=== PATIENT | female | born 1940 | race Two or more races ===

== ENCOUNTER 2023-06-01 03:41 | Emergency (ER) | payer OTHER ==
[~2023-06-01] VITALS: Ht 157.5 cm; Wt 51.3 kg
[2023-06-01] MEDS ORDERED: methylPREDNISolone SOD SUCC 125 MG/2ML VIAL ONE (03:51)
[2023-06-01] MEDS ORDERED: ASPIRIN 81 MG TAB.CHEW PO ONE (04:00)
[2023-06-01] MEDS ORDERED: IPRATROPIUM NEB FS 0.5 MG/2.5 ML AMPUL.NEB NEB ONE (04:00)
[2023-06-01] MEDS ORDERED: ALBUTEROL FS 2.5 MG/3 ML VIAL.NEB NEB ONE (04:00)
[2023-06-01] MEDS ORDERED: methylPREDNISolone SOD SUCC 125 MG/2ML VIAL IV ONE (04:00)
[2023-06-01] MEDS ORDERED: ALBUTEROL FS 2.5 MG/3 ML VIAL.NEB ONE (04:03)
[2023-06-01] MEDS ORDERED: IPRATROPIUM NEB FS 0.5 MG/2.5 ML AMPUL.NEB ONE (04:03)
[2023-06-01] MEDS ORDERED: ASPIRIN 81 MG TAB.CHEW ONE (04:05)
[2023-06-01 04:11] VITALS: O2SAT 97
[2023-06-01 04:58] LABS: BASOPHILS # (AUTO) 0.1 K/uL (0.0-0.2); BASOPHILS % (AUTO) 0.9 % (0.0-2.0); EOSINOPHILS # (AUTO) 1.4 K/uL (0.0-0.7); EOSINOPHILS % (AUTO) 12.8 % (0.0-6.0); HEMATOCRIT 41 % (33-45); HEMOGLOBIN 13.1 g/dL (11.5-14.8); LYMPHOCYTES # (AUTO) 1.6 K/uL (0.8-4.8); LYMPHOCYTES % (AUTO) 14.4 % (20.0-44.0); MEAN CORPUSCULAR HEMOGLOBIN 28 PG (26.0-33.0); MEAN CORPUSCULAR HGB CONC 32 g/dl (31.0-36.0); MEAN CORPUSCULAR VOLUME 86 fL (82-100); MONOCYTES # (AUTO) 0.9 K/uL (0.1-1.30); MONOCYTES % (AUTO) 8.1 % (2.0-12.0); NEUTROPHILS # (AUTO) 6.9 K/uL (1.8-8.9); NEUTROPHILS % (AUTO) 63.8 % (43.0-81.0); PLATELET COUNT (AUTO) 197 K/uL (150-450); RED BLOOD CELL COUNT(AUTO) 4.75 MIL/uL (4.0-5.2); RED CELL DISTRIBUTION WIDTH 18.3 % (11.5-15.0); WHITE BLOOD COUNT (AUTO) 10.8 K/uL (4.3-11.0)
[2023-06-01 05:11] VITALS: O2SAT 98; O2SAT 99
[2023-06-01 05:16] LABS: CALCIUM, SERUM 9.4 mg/dL (8.5-10.1); CARBON DIOXIDE 28 mmol/L (21-32); CHLORIDE 95 mmol/L (98-107); CREATININE 1.2 mg/dL (0.6-1.3); GLUCOSE 119 mg/dL (74-106); POTASSIUM 4.1 mmol/L (3.5-5.1); SODIUM SERUM 134 mmol/L (136-145); UREA NITROGEN, BLOOD 22 mg/dL (7-18)
[2023-06-01 09:12] VITALS: BP 145/77; TEMP 98.1; O2SAT 99
== END 2023-06-01 09:12 | disposition short-term general hospital (02) ==
LOC: ER 03:43
DX: R07.9 Chest pain, unspecified (principal); J44.9 Chronic obstructive pulmonary disease, unspecified; I10 Essential (primary) hypertension; I48.91 Unspecified atrial fibrillation; Z88.0 Allergy status to penicillin; Z88.8 Allergy status to other drugs, medicaments and biological substances
CPT/HCPCS: 99285; 96374; 71045; 93005; 85025; 80048; 36415; 84484 ×2; 94644; J2930

== ENCOUNTER 2023-09-04 03:29 | Emergency (ER) | payer OTHER ==
[~2023-09-04] VITALS: Ht 157.5 cm; Wt 51.3 kg
[2023-09-04] MEDS ORDERED: FUROSEMIDE 40 MG/4 ML VIAL ONE (03:58)
[2023-09-04] MEDS ORDERED: FUROSEMIDE 40 MG/4 ML VIAL IV ONE (04:00)
[2023-09-04] MEDS ORDERED: NITROGLYCERIN 0.4 MG/TAB BOTTLE SL ONE (04:00)
[2023-09-04 04:24] VITALS: TEMP 98
[2023-09-04 04:29] LABS: BASOPHILS # (AUTO) 0.1 K/uL (0.0-0.2); BASOPHILS % (AUTO) 0.8 % (0.0-2.0); EOSINOPHILS # (AUTO) 0.2 K/uL (0.0-0.7); EOSINOPHILS % (AUTO) 2.5 % (0.0-6.0); HEMATOCRIT 42 % (33-45); HEMOGLOBIN 13.7 g/dL (11.5-14.8); LYMPHOCYTES # (AUTO) 1.1 K/uL (0.8-4.8); LYMPHOCYTES % (AUTO) 11.8 % (20.0-44.0); MEAN CORPUSCULAR HEMOGLOBIN 29 PG (26.0-33.0); MEAN CORPUSCULAR HGB CONC 33 g/dl (31.0-36.0); MEAN CORPUSCULAR VOLUME 87 fL (82-100); MONOCYTES # (AUTO) 0.7 K/uL (0.1-1.30); MONOCYTES % (AUTO) 6.9 % (2.0-12.0); NEUTROPHILS # (AUTO) 7.5 K/uL (1.8-8.9); PLATELET COUNT (AUTO) 197 K/uL (150-450); RED BLOOD CELL COUNT(AUTO) 4.78 MIL/uL (4.0-5.2); RED CELL DISTRIBUTION WIDTH 17.5 % (11.5-15.0); WHITE BLOOD COUNT (AUTO) 9.7 K/uL (4.3-11.0)
[2023-09-04 04:32] LABS: CARBON DIOXIDE 28 mmol/L (21-32); CHLORIDE 93 mmol/L (98-107); CREATININE 1.2 mg/dL (0.6-1.3); GLUCOSE 107 mg/dL (74-106); POTASSIUM 4.6 mmol/L (3.5-5.1); SODIUM SERUM 126 mmol/L (136-145); UREA NITROGEN, BLOOD 27 mg/dL (7-18)
[2023-09-04 04:37] LABS: INR 1.9 (0.91-1.10); PARTIAL THROMBOPLASTIN TIME 34.7 SEC (24.3-34.3); PROTHROMBIN TIME 19.3 SECS (9.2-11.1)
[2023-09-04 04:45] LABS: ALANINE AMINOTRANSFERASE 40 U/L (12-78); ALBUMIN 3.8 g/dL (3.4-5.0); ALKALINE PHOSPHATASE 116 U/L (46-116); ASPARTATE AMINOTRANSFERASE 46 U/L (15-37); BILIRUBIN,DIRECT 0.7 mg/dL (0.0-0.2); BILIRUBIN,TOTAL 1.5 mg/dL (0.2-1.0); NT-PRO BNP 6819 pg/mL (0-125); TOTAL PROTEIN, SERUM 7.9 g/dL (6.4-8.2)
[2023-09-04] MEDS ORDERED: ENOXAPARIN SODIUM 40 MG/0.4 ML DISP.SYRIN SQ ONE (05:00)
[2023-09-04] MEDS ORDERED: ENOXAPARIN SODIUM 60 MG/0.6 ML DISP.SYRIN SQ ONE (05:04)
[2023-09-04 07:53] VITALS: BP 144/92; O2SAT 98
== END 2023-09-04 09:10 | disposition short-term general hospital (02) ==
LOC: ER 03:54
DX: I21.4 Non-ST elevation (NSTEMI) myocardial infarction (principal); I11.0 Hypertensive heart disease with heart failure; I50.9 Heart failure, unspecified; I48.91 Unspecified atrial fibrillation; Z20.822 Contact with and (suspected) exposure to COVID-19; J44.9 Chronic obstructive pulmonary disease, unspecified; R07.89 Other chest pain; Z88.1 Allergy status to other antibiotic agents
CPT/HCPCS: 99291; 96374; 71045; 87426; 99292; 93005; 85025; 80048; 80076; 36415; 84484; 85730; 83880; 96372; J1940; J1650; C9803

== ENCOUNTER 2024-03-24 19:49 | Emergency (ER) | payer OTHER, MEDICAID ==
[~2024-03-24] VITALS: Ht 154.9 cm; Wt 48.1 kg
[2024-03-24 20:11] VITALS: TEMP 98.2
[2024-03-24 20:33] LABS: BASOPHILS % (AUTO) 0.4 % (0.0-2.0); EOSINOPHILS # (AUTO) 0.5 K/uL (0.0-0.7); EOSINOPHILS % (AUTO) 5.3 % (0.0-6.0); HEMATOCRIT 37 % (33-45); HEMOGLOBIN 12.1 g/dL (11.5-14.8); LYMPHOCYTES # (AUTO) 0.9 K/uL (0.8-4.8); LYMPHOCYTES % (AUTO) 9.5 % (20.0-44.0); MEAN CORPUSCULAR HEMOGLOBIN 30 PG (26.0-33.0); MEAN CORPUSCULAR HGB CONC 33 g/dl (31.0-36.0); MEAN CORPUSCULAR VOLUME 90 fL (82-100); MONOCYTES % (AUTO) 9.9 % (2.0-12.0); NEUTROPHILS # (AUTO) 7.5 K/uL (1.8-8.9); NEUTROPHILS % (AUTO) 74.9 % (43.0-81.0); PLATELET COUNT (AUTO) 212 K/uL (150-450); RED BLOOD CELL COUNT(AUTO) 4.09 MIL/uL (4.0-5.2)
[2024-03-24 20:40] LABS: CALCIUM, SERUM 9.3 mg/dL (8.5-10.1); CARBON DIOXIDE 33 mmol/L (21-32); CHLORIDE 96 mmol/L (98-107); GLUCOSE 118 mg/dL (74-106); POTASSIUM 4.7 mmol/L (3.5-5.1); SODIUM SERUM 136 mmol/L (136-145); UREA NITROGEN, BLOOD 19 mg/dL (7-18)
[2024-03-24 20:54] LABS: NT-PRO BNP 8592 pg/mL (0-125)
[2024-03-24] MEDS ORDERED: FUROSEMIDE 40 MG/4 ML VIAL ONE (21:05)
[2024-03-24] MEDS ORDERED: NITROGLYCERIN PACKET 1 GM PACKET ONE (21:05)
[2024-03-24] MEDS: FUROSEMIDE 40 MG/4 ML VIAL IV ONE (21:15)
[2024-03-24] MEDS: NITROGLYCERIN PACKET 1 GM PACKET TD ONE (21:19)
[2024-03-24 21:41] VITALS: BP 157/97
[2024-03-24 21:55] LABS: INR 3.44 (0.91-1.10); PARTIAL THROMBOPLASTIN TIME 41.6 SEC (24.3-34.3); PROTHROMBIN TIME 33.6 SECS (9.2-11.1)
[2024-03-24 23:01] VITALS: O2SAT 98
[2024-03-24] MEDS: IPRATROPIUM NEB FS 0.5 MG/2.5 ML AMPUL.NEB NEB ONE (23:01)
[2024-03-24] MEDS: ALBUTEROL FS 2.5 MG/3 ML VIAL.NEB NEB ONE (23:01)
[2024-03-24] MEDS ORDERED: IPRATROPIUM NEB FS 0.5 MG/2.5 ML AMPUL.NEB ONE (23:03)
[2024-03-24] MEDS ORDERED: ALBUTEROL FS 2.5 MG/3 ML VIAL.NEB ONE (23:03)
[2024-03-24 23:18] VITALS: O2SAT 99
== END 2024-03-24 23:35 | disposition short-term general hospital (02) ==
LOC: ER 20:01
DX: I50.9 Heart failure, unspecified (principal); I21.4 Non-ST elevation (NSTEMI) myocardial infarction; I48.91 Unspecified atrial fibrillation; J44.89 Other specified chronic obstructive pulmonary disease; Z88.8 Allergy status to other drugs, medicaments and biological substances
CPT/HCPCS: 99285; 96374; 71045; 93005 ×2; 85025; 80048; 80162; 36415; 84484 ×2; 85730; 83880; 94640; J1940

== ENCOUNTER 2024-03-29 13:23 | Emergency (ER) | payer OTHER, MEDICAID ==
[~2024-03-29] VITALS: Ht 152.4 cm; Wt 44.9 kg
[2024-03-29 14:04] LABS: BASOPHILS # (AUTO) 0.1 K/uL (0.0-0.2); EOSINOPHILS # (AUTO) 0.4 K/uL (0.0-0.7); LYMPHOCYTES # (AUTO) 0.6 K/uL (0.8-4.8); LYMPHOCYTES % (AUTO) 8.4 % (20.0-44.0); MONOCYTES # (AUTO) 0.9 K/uL (0.1-1.30); NEUTROPHILS # (AUTO) 5.4 K/uL (1.8-8.9); WHITE BLOOD COUNT (AUTO) 7.4 K/uL (4.3-11.0)
[2024-03-29 14:08] LABS: EOSINOPHILS % (AUTO) 5.5 % (0.0-6.0); HEMATOCRIT 38 % (33-45); HEMOGLOBIN 12.3 g/dL (11.5-14.8); MEAN CORPUSCULAR HEMOGLOBIN 29 PG (26.0-33.0); MEAN CORPUSCULAR HGB CONC 32 g/dl (31.0-36.0); MEAN CORPUSCULAR VOLUME 90 fL (82-100); MONOCYTES % (AUTO) 11.8 % (2.0-12.0); NEUTROPHILS % (AUTO) 73.3 % (43.0-81.0); PLATELET COUNT (AUTO) 217 K/uL (150-450); RED BLOOD CELL COUNT(AUTO) 4.25 MIL/uL (4.0-5.2); RED CELL DISTRIBUTION WIDTH 17.6 % (11.5-15.0)
[2024-03-29 14:13] LABS: CALCIUM, SERUM 8.7 mg/dL (8.5-10.1); CARBON DIOXIDE 32 mmol/L (21-32); CHLORIDE 97 mmol/L (98-107); CREATININE 0.9 mg/dL (0.6-1.3); GLUCOSE 118 mg/dL (74-106); POTASSIUM 4.4 mmol/L (3.5-5.1); SODIUM SERUM 131 mmol/L (136-145); UREA NITROGEN, BLOOD 17 mg/dL (7-18)
[2024-03-29 14:25] LABS: NT-PRO BNP 7850 pg/mL (0-125)
[2024-03-29 19:03] VITALS: BP 173/79; TEMP 97.9; O2SAT 100
== END 2024-03-29 19:04 ==
LOC: ER 13:37
DX: I11.0 Hypertensive heart disease with heart failure (principal); I50.9 Heart failure, unspecified; J44.9 Chronic obstructive pulmonary disease, unspecified; I48.91 Unspecified atrial fibrillation; Z88.8 Allergy status to other drugs, medicaments and biological substances
CPT/HCPCS: 36415; 71045-TC; 80048-TC; 83880; 84484-TC; 85025-TC

== ENCOUNTER 2024-04-03 23:52 | Emergency (ER) | payer OTHER, MEDICAID ==
[~2024-04-03] VITALS: Ht 152.4 cm; Wt 49.9 kg
[2024-04-04] MEDS ORDERED: FUROSEMIDE 40 MG/4 ML VIAL ONE (00:17)
[2024-04-04] MEDS ORDERED: NITROGLYCERIN 0.4 MG/TAB BOTTLE ONE (00:18)
[2024-04-04 00:33] LABS: BASOPHILS % (AUTO) 0.4 % (0.0-2.0); EOSINOPHILS # (AUTO) 0.6 K/uL (0.0-0.7); EOSINOPHILS % (AUTO) 5.5 % (0.0-6.0); HEMATOCRIT 36 % (33-45); HEMOGLOBIN 11.7 g/dL (11.5-14.8); LYMPHOCYTES # (AUTO) 0.9 K/uL (0.8-4.8); LYMPHOCYTES % (AUTO) 8.9 % (20.0-44.0); MEAN CORPUSCULAR HEMOGLOBIN 30 PG (26.0-33.0); MEAN CORPUSCULAR HGB CONC 33 g/dl (31.0-36.0); MEAN CORPUSCULAR VOLUME 90 fL (82-100); MONOCYTES # (AUTO) 1.4 K/uL (0.1-1.30); MONOCYTES % (AUTO) 13.7 % (2.0-12.0); NEUTROPHILS # (AUTO) 7.2 K/uL (1.8-8.9); NEUTROPHILS % (AUTO) 71.5 % (43.0-81.0); PLATELET COUNT (AUTO) 258 K/uL (150-450); RED BLOOD CELL COUNT(AUTO) 3.96 MIL/uL (4.0-5.2); RED CELL DISTRIBUTION WIDTH 16.7 % (11.5-15.0); WHITE BLOOD COUNT (AUTO) 10.1 K/uL (4.3-11.0)
[2024-04-04] MEDS: FUROSEMIDE 40 MG/4 ML VIAL IV ONE (00:38)
[2024-04-04] MEDS: NITROGLYCERIN 0.4 MG/TAB BOTTLE SL ONE (00:38)
[2024-04-04 00:50] LABS: CALCIUM, SERUM 9.1 mg/dL (8.5-10.1); CARBON DIOXIDE 29 mmol/L (21-32); CHLORIDE 90 mmol/L (98-107); CREATININE 1.2 mg/dL (0.6-1.3); GLUCOSE 146 mg/dL (74-106); POTASSIUM 4.9 mmol/L (3.5-5.1); SODIUM SERUM 128 mmol/L (136-145); UREA NITROGEN, BLOOD 31 mg/dL (7-18)
[2024-04-04 01:03] LABS: ALANINE AMINOTRANSFERASE 21 U/L (12-78); ALBUMIN 2.7 g/dL (3.4-5.0); ALKALINE PHOSPHATASE 125 U/L (46-116); ASPARTATE AMINOTRANSFERASE 30 U/L (15-37); BILIRUBIN,DIRECT 1.1 mg/dL (0.0-0.2); BILIRUBIN,TOTAL 1.7 mg/dL (0.2-1.0); NT-PRO BNP 13187 pg/mL (0-125); TOTAL PROTEIN, SERUM 7.4 g/dL (6.4-8.2)
[2024-04-04 02:01] LABS: INR 3.86 (0.91-1.10); PARTIAL THROMBOPLASTIN TIME 49.8 SEC (24.3-34.3); PROTHROMBIN TIME 37.5 SECS (9.2-11.1)
[2024-04-04 03:06] VITALS: O2SAT 96
[2024-04-04] MEDS: IPRATROPIUM NEB FS 0.5 MG/2.5 ML AMPUL.NEB NEB ONE (03:07)
[2024-04-04] MEDS: ALBUTEROL FS 2.5 MG/3 ML VIAL.NEB NEB ONE (03:07)
[2024-04-04] MEDS ORDERED: IPRATROPIUM NEB FS 0.5 MG/2.5 ML AMPUL.NEB ONE (03:14)
[2024-04-04] MEDS ORDERED: ALBUTEROL FS 2.5 MG/3 ML VIAL.NEB ONE (03:14)
[2024-04-04 03:21] VITALS: O2SAT 99
[2024-04-04] MEDS ORDERED: LIDOCAINE VISCOUS 2% UD 15 ML UDC ONE (03:25)
[2024-04-04] MEDS ORDERED: MAG HYDROX/AL HYDROX/SIMETH 30 ML UDC ONE (03:25)
[2024-04-04] MEDS: LIDOCAINE VISCOUS 2% UD 15 ML UDC MM ONE (03:25)
[2024-04-04] MEDS: MAG HYDROX/AL HYDROX/SIMETH 30 ML UDC PO ONE (03:25)
[2024-04-04 03:54] VITALS: BP 141/78; TEMP 98.8; O2SAT 99
== END 2024-04-04 03:55 | disposition short-term general hospital (02) ==
LOC: ER 23:54
DX: I50.9 Heart failure, unspecified (principal); R06.02 Shortness of breath; E87.1 Hypo-osmolality and hyponatremia; I48.91 Unspecified atrial fibrillation; J44.9 Chronic obstructive pulmonary disease, unspecified; Z20.822 Contact with and (suspected) exposure to COVID-19; Z88.1 Allergy status to other antibiotic agents; Z88.5 Allergy status to narcotic agent; Z88.8 Allergy status to other drugs, medicaments and biological substances
CPT/HCPCS: 99291; 96374; 87426; 93005; 71045; 85025; 80048; 80076; 36415; 84484; 85730; 83880; 94640; J1940

== ENCOUNTER 2024-04-13 06:17 | Inpatient (IN) | payer OTHER, MEDICAID ==
[2024-04-13] VITALS (12 sets, daily range): BP systolic 115–125; BP diastolic 72–89; TEMP 97.3–98; O2SAT 95–99
[~2024-04-13] VITALS: Ht 154.9 cm; Wt 43.1 kg
[2024-04-13] MEDS: ALBUTEROL FS 2.5 MG/3 ML VIAL.NEB CONTNEB ONE (06:25)
[2024-04-13] MEDS: IPRATROPIUM NEB FS 0.5 MG/2.5 ML AMPUL.NEB NEB ONE (06:25)
[2024-04-13] MEDS ORDERED: Magnesium 1GM/D5W 100ML PREMIX 100 ML IV ONE (06:28)
[2024-04-13] MEDS ORDERED: methylPREDNISolone SOD SUCC 125 MG/2ML VIAL ONE (06:28)
[2024-04-13] MEDS ORDERED: ALBUTEROL FS 2.5 MG/3 ML VIAL.NEB ONE (06:28)
[2024-04-13] MEDS ORDERED: IPRATROPIUM NEB FS 0.5 MG/2.5 ML AMPUL.NEB ONE (06:29)
[2024-04-13] MEDS: Magnesium 1GM/D5W 100ML PREMIX 200 ML IV ONE (06:30)
[2024-04-13] MEDS: methylPREDNISolone SOD SUCC 125 MG/2ML VIAL IV ONE (06:30)
[2024-04-13 07:18] LABS: BASOPHILS # (AUTO) 0.1 K/uL (0.0-0.2); BASOPHILS % (AUTO) 0.6 % (0.0-2.0); EOSINOPHILS # (AUTO) 0.3 K/uL (0.0-0.7); EOSINOPHILS % (AUTO) 2.6 % (0.0-6.0); HEMATOCRIT 33 % (33-45); HEMOGLOBIN 10.6 g/dL (11.5-14.8); LYMPHOCYTES % (AUTO) 9.1 % (20.0-44.0); MEAN CORPUSCULAR HEMOGLOBIN 29 PG (26.0-33.0); MEAN CORPUSCULAR HGB CONC 33 g/dl (31.0-36.0); MEAN CORPUSCULAR VOLUME 87 fL (82-100); MONOCYTES # (AUTO) 1.5 K/uL (0.1-1.30); MONOCYTES % (AUTO) 13.8 % (2.0-12.0); NEUTROPHILS # (AUTO) 8.1 K/uL (1.8-8.9); NEUTROPHILS % (AUTO) 73.9 % (43.0-81.0); PLATELET COUNT (AUTO) 371 K/uL (150-450); RED BLOOD CELL COUNT(AUTO) 3.73 MIL/uL (4.0-5.2); RED CELL DISTRIBUTION WIDTH 16.3 % (11.5-15.0); WHITE BLOOD COUNT (AUTO) 10.9 K/uL (4.3-11.0)
[2024-04-13] MEDS ORDERED: METOPROLOL TARTRATE INJ 5 MG/5 ML AMPUL IVP PRN (07:30)
[2024-04-13 07:46] LABS: ALANINE AMINOTRANSFERASE 30 U/L (12-78); ALBUMIN 2.6 g/dL (3.4-5.0); ALKALINE PHOSPHATASE 106 U/L (46-116); ASPARTATE AMINOTRANSFERASE 28 U/L (15-37); BILIRUBIN,DIRECT 1.5 mg/dL (0.0-0.2); BILIRUBIN,TOTAL 2.4 mg/dL (0.2-1.0); CALCIUM, SERUM 8.3 mg/dL (8.5-10.1); CARBON DIOXIDE 27 mmol/L (21-32); CHLORIDE 85 mmol/L (98-107); CREATININE 1.1 mg/dL (0.6-1.3); GLUCOSE 146 mg/dL (74-106); POTASSIUM 4.3 mmol/L (3.5-5.1); TOTAL PROTEIN, SERUM 7.3 g/dL (6.4-8.2); UREA NITROGEN, BLOOD 31 mg/dL (7-18)
[2024-04-13 07:50] LABS: SODIUM SERUM 119 mmol/L (136-145)
[2024-04-13 09:02] LABS: THYROID STIMULATING HORMONE 3.3 uIU/mL (0.358-3.74)
[2024-04-13] MEDS ORDERED: BUDE10.2 IH (09:05)
[2024-04-13] MEDS ORDERED: IPRA3AMP22 IH (09:05)
[2024-04-13] MEDS ORDERED: MENT118G TP (09:05)
[2024-04-13] MEDS ORDERED: DIGO-30 PO (09:05)
[2024-04-13] MEDS ORDERED: TRIA80CR12 TP (09:05)
[2024-04-13] MEDS ORDERED: METO25TA6 PO (09:05)
[2024-04-13] MEDS ORDERED: POTA-10 PO (09:05)
[2024-04-13] MEDS ORDERED: WARF1TAB86 PO (09:05)
[2024-04-13] MEDS ORDERED: ATOR40TA PO (09:05)
[2024-04-13] MEDS ORDERED: FURO-145 PO (09:05)
[2024-04-13] MEDS ORDERED: MAGN400T26 PO (09:05)
[2024-04-13] MEDS ORDERED: [UNRECOGNIZED DRUG - OTHER] TP (09:05)
[2024-04-13] MEDS ORDERED: ISOS30TA86 PO (09:05)
[2024-04-13] MEDS ORDERED: ALBU8.5H8 IH (09:05)
[2024-04-13] MEDS ORDERED: FLUO15CR12 TP (09:05)
[2024-04-13] MEDS ORDERED: LEVO75TA7 PO (09:05)
[2024-04-13] MEDS ORDERED: MAGNESIUM HYDROXIDE 30 ML UDC PO PRN (10:00)
[2024-04-13] MEDS ORDERED: ONDANSETRON HCL/PF 4 MG/2 ML VIAL IVP PRN (10:00)
[2024-04-13] MEDS ORDERED: Z GUARD REMEDY 4 OZ OINT TP PRN (10:00)
[2024-04-13] MEDS ORDERED: MAG HYDROX/AL HYDROX/SIMETH 30 ML UDC PO PRN (10:00)
[2024-04-13] MEDS ORDERED: MAGNESIUM OXIDE 400 MG TABLET PO SCH (10:00)
[2024-04-13 10:26] LABS: PROTHROMBIN TIME 48.1 SECS (9.2-11.1)
[2024-04-13 10:32] LABS: INR 5.04 (0.91-1.10)
[2024-04-13] MEDS: MAGNESIUM OXIDE 400 MG TABLET PO SCH (10:40)
[2024-04-13] MEDS: ALBUTEROL FS 2.5 MG/3 ML VIAL.NEB NEB PRN (11:02)
[2024-04-13] MEDS: METOPROLOL TARTRATE 25 MG TABLET PO SCH (11:18)
[2024-04-13] MEDS ORDERED: PHYTONADIONE INJ 10 MG/1 ML AMPUL SQ SCH (11:30)
[2024-04-13] MEDS: PHYTONADIONE INJ 10 MG/1 ML AMPUL SQ ONE (12:11)
[2024-04-13] MEDS: FUROSEMIDE 20 MG/2 ML VIAL IV ONE (13:18)
[2024-04-13] MEDS: ALBUTEROL FS 2.5 MG/0.5 ML VIAL.NEB NEB SCH (13:30)
[2024-04-13] MEDS: BUDESONIDE RESPULE INH 0.25 MG/2 ML AMPUL.NEB NEB SCH (14:42)
[2024-04-13] MEDS: LIDOCAINE 5% OINT 35.44 GM TUBE TP PRN (15:44)
[2024-04-13] MEDS ORDERED: TRIAMCINOLONE ACETONIDE 0.1% CR 15 GM TUBE TP SCH (17:00)
[2024-04-13] MEDS ORDERED: METOPROLOL TARTRATE 25 MG TABLET PO SCH (17:00)
[2024-04-13] MEDS: ACETAMINOPHEN 325 MG TABLET PO PRN (17:16)
[2024-04-13] MEDS: ZOLPIDEM TARTRATE 5 MG TABLET PO PRN (23:24)
[2024-04-14] VITALS (14 sets, daily range): BP systolic 103–132; BP diastolic 62–88; TEMP 97.3–98.1; O2SAT 95–99
[2024-04-14 07:27] LABS: PROTHROMBIN TIME 52.4 SECS (9.2-11.1)
[2024-04-14 07:37] LABS: BASOPHILS % (AUTO) 0.2 % (0.0-2.0); HEMATOCRIT 35 % (33-45); HEMOGLOBIN 11.5 g/dL (11.5-14.8); LYMPHOCYTES % (AUTO) 5.3 % (20.0-44.0); MEAN CORPUSCULAR HEMOGLOBIN 29 PG (26.0-33.0); MEAN CORPUSCULAR HGB CONC 33 g/dl (31.0-36.0); MEAN CORPUSCULAR VOLUME 88 fL (82-100); MONOCYTES % (AUTO) 5.6 % (2.0-12.0); NEUTROPHILS # (AUTO) 16.2 K/uL (1.8-8.9); NEUTROPHILS % (AUTO) 88.9 % (43.0-81.0); PLATELET COUNT (AUTO) 397 K/uL (150-450); RED BLOOD CELL COUNT(AUTO) 3.98 MIL/uL (4.0-5.2); RED CELL DISTRIBUTION WIDTH 16.3 % (11.5-15.0); WHITE BLOOD COUNT (AUTO) 18.2 K/uL (4.3-11.0)
[2024-04-14 07:49] LABS: INR 5.53 (0.91-1.10)
[2024-04-14] MEDS: LEVOTHYROXINE SODIUM 75 MCG TABLET PO SCH (08:25)
[2024-04-14 08:34] LABS: CALCIUM, SERUM 8.7 mg/dL (8.5-10.1); CARBON DIOXIDE 21 mmol/L (21-32); CHLORIDE 84 mmol/L (98-107); CREATININE 1.4 mg/dL (0.6-1.3); GLUCOSE 149 mg/dL (74-106); MAGNESIUM 3.2 mg/dL (1.8-2.4); PHOSPHORUS 3.8 mg/dL (2.5-4.9); POTASSIUM 5.6 mmol/L (3.5-5.1); UREA NITROGEN, BLOOD 42 mg/dL (7-18)
[2024-04-14 08:52] LABS: SODIUM SERUM 118 mmol/L (136-145)
[2024-04-14] MEDS: ISOSORBIDE MONONITRATE (30MG) 30 MG TAB.SR.24H PO SCH (09:50)
[2024-04-14] MEDS: FUROSEMIDE 40 MG/4 ML VIAL IV SCH (09:51)
[2024-04-14] MEDS: SODIUM POLYSTYRENE SULF. PWD 15 GM UDC PO ONE (10:21)
[2024-04-14] MEDS: PHYTONADIONE INJ 10 MG/1 ML AMPUL SQ ONE (10:22)
[2024-04-14] MEDS: ATORVASTATIN 40 MG TABLET PO SCH (10:43)
[2024-04-14 10:55] LABS: THYROID STIMULATING HORMONE 1.36 uIU/mL (0.358-3.74); URIC ACID 8.7 mg/dL (2.6-7.2)
[2024-04-14] MEDS ORDERED: NEPRO VAN 237 ML CAN PO PRN (11:00)
[2024-04-14 11:22] LABS: DIGOXIN 0.64 ng/mL (0.90-2.00)
[2024-04-14] MEDS: DIGOXIN 0.125 MG TABLET PO SCH (12:38)
[2024-04-14] MEDS: CEFEPIME 1 GM in IV D5W 50 ML IV SCH (14:32)
[2024-04-14 15:04] LABS: CALCIUM, SERUM 8.4 mg/dL (8.5-10.1); CARBON DIOXIDE 32 mmol/L (21-32); CHLORIDE 82 mmol/L (98-107); CREATININE 1.4 mg/dL (0.6-1.3); GLUCOSE 186 mg/dL (74-106); POTASSIUM 4.6 mmol/L (3.5-5.1); SODIUM SERUM 122 mmol/L (136-145); UREA NITROGEN, BLOOD 54 mg/dL (7-18)
== END 2024-04-14 18:57 | disposition short-term general hospital (02) | DRG 308 ==
LOC: ER 06:19 → TELE1 09:11
PROVIDERS: ADMIT Nurse Practitioner Acute Care; ATTEND Nurse Practitioner Acute Care
DX: I48.91 Unspecified atrial fibrillation (principal); G93.41 Metabolic encephalopathy; J15.69 Pneumonia due to other Gram-negative bacteria; J96.21 Acute and chronic respiratory failure with hypoxia; I50.43 Acute on chronic combined systolic (congestive) and diastolic (congestive) heart failure; J44.1 Chronic obstructive pulmonary disease with (acute) exacerbation; I13.0 Hypertensive heart and chronic kidney disease with heart failure and stage 1 through stage 4 chronic kidney disease, or unspecified chronic kidney disease; E44.0 Moderate protein-calorie malnutrition; E87.1 Hypo-osmolality and hyponatremia; N17.9 Acute kidney failure, unspecified; N18.9 Chronic kidney disease, unspecified; Z20.822 Contact with and (suspected) exposure to COVID-19; E78.5 Hyperlipidemia, unspecified; I25.10 Atherosclerotic heart disease of native coronary artery without angina pectoris; Z79.899 Other long term (current) drug therapy; Z79.01 Long term (current) use of anticoagulants; I08.0 Rheumatic disorders of both mitral and aortic valves; M19.90 Unspecified osteoarthritis, unspecified site; M89.8X9 Other specified disorders of bone, unspecified site; E03.9 Hypothyroidism, unspecified; Z88.1 Allergy status to other antibiotic agents; Z88.8 Allergy status to other drugs, medicaments and biological substances; R79.89 Other specified abnormal findings of blood chemistry; R74.01 Elevation of levels of liver transaminase levels; R79.1 Abnormal coagulation profile; I27.20 Pulmonary hypertension, unspecified; E88.09 Other disorders of plasma-protein metabolism, not elsewhere classified; F03.90 Unspecified dementia, unspecified severity, without behavioral disturbance, psychotic disturbance, mood disturbance, and anxiety; E87.5 Hyperkalemia; Z88.0 Allergy status to penicillin; Z88.2 Allergy status to sulfonamides; Z88.3 Allergy status to other anti-infective agents
CPT/HCPCS: 36415; 36600; 71045-TC; 80048-TC; 80076-TC; 80162-TC; 82533; 82803-TC; 83605-TC; 83735-TC; 83880; 84100-TC; 84443-TC; 84484-TC; 84550-TC; 85025-TC; 85610-TC; 87040-TC; 93307-TC; 94762-TC; 94799-TC; A4223; G0378; J0692; J1940; J2919; J3430; J3475; J7040; J7060